=== PATIENT | male | born 1950 | race Caucasian/White ===

== ENCOUNTER 2021-08-27 14:40 | Emergency (ER) | payer MEDICARE ==
[~2021-08-27] VITALS: Ht 170.2 cm; Wt 100.0 kg
[~2021-08-27 14:40] MED LIST: CILO50TA PO; FINA5TAB11 PO; GLIM2TAB30 PO; HYDR-4134 PO; LOSA100T32 PO; METF-874 PO; PARO-41 PO; REPA0.5T5 PO
[2021-08-27 15:29] LABS: BASOPHILS % 0.8 % (0.0-2.0); EOSINOPHILS % 2.2 % (0.0-5.0); HEMATOCRIT. 29.7 % (42.0-52.0); HEMOGLOBIN. 10.3 g/dL (14.0-18.0); MEAN CORPUSCULAR HEMOGLOBIN 29.4 pg (28.0-32.0); MEAN CORPUSCULAR VOLUME 84.4 fL (80.0-94.0); MEAN PLATELET VOLUME 8.4 fl (7.4-10.4); MONOCYTES % 5.7 % (2.0-8.0); NEUTROPHILS % 74.3 % (40.0-76.0); PLATELET 200 x1000/uL (130-400); RED BLOOD CELL COUNT 3.52 mill/uL (4.7-6.1); RED CELL DISTRIBUTION WIDTH 14.6 % (11.6-14.6)
[2021-08-27 15:34] LABS: CHLORIDE 111 mEq/L (98-107)
[2021-08-27 16:30] VITALS: BP 128/62
== END 2021-08-27 16:30 | disposition home or self-care (01) ==
LOC: ER 14:47
DX: R55 Syncope and collapse (principal); I12.9 Hypertensive chronic kidney disease with stage 1 through stage 4 chronic kidney disease, or unspecified chronic kidney disease; N18.9 Chronic kidney disease, unspecified; E11.9 Type 2 diabetes mellitus without complications; I10 Essential (primary) hypertension; Z79.4 Long term (current) use of insulin
CPT/HCPCS: 36415; 71045; 80053; 82962; 83880; 84484; 85025; 93005; 99285